=== PATIENT | female | born 1985 | race Caucasian/White ===

== ENCOUNTER 2021-07-16 05:55 | Emergency (ER) | payer BC, OTHER ==
[~2021-07-16] VITALS: Ht 167.6 cm; Wt 81.6 kg
[~2021-07-16 05:55] MED LIST: ANEXSIA 5-3251 EACH PO; NUVARING VAGIN1 EACH; XANAX0.5 MG PO; Z.0.WELLBUTRIN XL150 PO; [UNRECOGNIZED DRUG - OTHER] PO
[2021-07-16] MEDS ORDERED: CASIRIVIMAB/IMDEVIMAB 10 ML in SODIUM CHLORIDE 0.9% 100 ML IV ONE (06:00)
== END 2021-07-16 07:23 | disposition home or self-care (01) ==
LOC: ER 06:20
DX: R05 Cough (principal); U07.1 COVID-19; F41.9 Anxiety disorder, unspecified
CPT/HCPCS: 99283